=== PATIENT | male | born 1970 | race Caucasian/White ===

== ENCOUNTER 2017-07-30 09:14 | Emergency (ER) | payer MEDICARE ==
[~2017-07-30] VITALS: Ht 160 cm; Wt 55.0 kg
[~2017-07-30 09:14] MED LIST: DIVA250T25 PO; RISP3 PO
[2017-07-30] MEDS ORDERED: SERT100T12 PO (09:43)
[2017-07-30 10:08] VITALS: BP 116/83
[2017-07-30] MEDS ORDERED: IBUPROFEN 800 MG TABLET PO ONE (10:30)
== END 2017-07-30 10:56 | disposition home or self-care (01) ==
LOC: EMS 09:17
DX: H60.93 Unspecified otitis externa, bilateral (principal); F17.210 Nicotine dependence, cigarettes, uncomplicated
CPT/HCPCS: 99283

== ENCOUNTER 2017-08-08 13:42 | Emergency (ER) | payer MEDICARE ==
[~2017-08-08] VITALS: Ht 162.6 cm; Wt 54.5 kg
[~2017-08-08 13:42] MED LIST changes: -DIVA250T25 PO; -RISP3 PO; +SERT100T12 PO
[2017-08-08] MEDS ORDERED: LIDOCAINE HCL 1% 10 ML VIAL INJ ONE (14:15)
[2017-08-08] MEDS ORDERED: CEPHALEXIN MONOHYDRATE 500 MG CAPSULE PO ONE (14:15)
[2017-08-08] MEDS ORDERED: POVIDONE-IODINE 10% 15 ML SOLUTION UD TP ONE (14:15)
[2017-08-08] MEDS ORDERED: IBUPROFEN 800 MG TABLET PO ONE (14:15)
[2017-08-08] MEDS ORDERED: SULFAMETHOX/TRIMETH DS 800-160 MG/TABLET PO ONE (14:15)
[2017-08-08 14:44] VITALS: BP 118/71
== END 2017-08-08 14:50 | disposition home or self-care (01) ==
LOC: EMS 13:44
DX: L02.212 Cutaneous abscess of back [any part, except buttock and flank] (principal); F17.210 Nicotine dependence, cigarettes, uncomplicated
CPT/HCPCS: 10060; 99284; J3490

== ENCOUNTER 2017-10-21 21:28 | Emergency (ER) | payer MEDICARE ==
[~2017-10-21] VITALS: Ht 160 cm; Wt 59.1 kg
[2017-10-21] MEDS ORDERED: TRAM50TA4 PO (21:51)
[2017-10-21 22:15] LABS: BASOPHILS % (AUTO) 0.8 % (0.0-2.0); EOSINOPHILS % (AUTO) 0.9 % (1.0-6.0); HEMATOCRIT 41.2 % (41-53); HEMOGLOBIN 13.9 g/dL (13.5-17.5); LYMPHOCYTES # (AUTO) 1.8 K/uL (1.0-4.8); LYMPHOCYTES % (AUTO) 10.2 % (22.0-44.0); MEAN CORPUSCULAR HGB CONC 33.7 G/dL (31.0-37.0); MEAN CORPUSCULAR VOLUME 83 fL (80-100); MONOCYTES # (AUTO) 1.2 K/uL (0.1-1.0); NEUTROPHILS % (AUTO) 81.1 % (40.0-70.0); PLATELET COUNT (AUTO) 391 K/uL (150-450); RED BLOOD CELL COUNT(AUTO) 4.95 MIL/uL (4.50-5.90); RED CELL DISTRIBUTION WIDTH 14.8 % (11.5-14.5)
[2017-10-21 22:39] LABS: ANION GAP 10 mmol/L (8-16); CALCIUM, TOTAL 9.4 mg/dL (8.8-10.5); CARBON DIOXIDE 27 mmol/L (22-29); CHLORIDE 102 mmol/L (98-107); CREATININE 1.11 mg/dL (0.60-1.30); GLOMERULAR FILTR. RATE CALC > 60 mL/min (>60); GLUCOSE,RANDOM 93 mg/dL (70-110); POTASSIUM 3.7 mmol/L (3.5-5.1); SODIUM SERUM 139 mmol/L (136-145); UREA NITROGEN, BLOOD 17 mg/dL (7-18)
[2017-10-21 22:44] LABS: ALANINE AMINOTRANSFERASE 18 U/L (12-78); ALKALINE PHOSPHATASE 104 U/L (46-116); ASPARTATE AMINOTRANSFERASE 18 U/L (15-37); BILIRUBIN,TOTAL 0.2 mg/dL (0.1-1.0); TOTAL PROTEIN, SERUM 8.2 g/dL (6.4-8.2)
[2017-10-22 00:54] LABS: AMPHET/METH SCREEN,URINE NEGATIVE (NEGATIVE); BARBITURATE SCREEN, URINE NEGATIVE (NEGATIVE); BENZODIAZEPINES SCREEN,URINE NEGATIVE (NEGATIVE); CANNABINOID SCREEN,URINE NEGATIVE (NEGATIVE); COCAINE SCREEN,URINE NEGATIVE (NEGATIVE); METHADONE SCREEN, URINE NEGATIVE (NEGATIVE); OPIATE SCREEN,URINE NEGATIVE (NEGATIVE)
[2017-10-22 00:56] LABS: PHENCYCLIDINE SCREEN,URINE NEGATIVE (NEGATIVE)
[2017-10-22] MEDS ORDERED: LORazepam 2 MG TABLET PO ONE (01:15)
[2017-10-22 01:53] VITALS: BP 137/82
== END 2017-10-22 02:23 | disposition home or self-care (01) ==
LOC: EMS 21:56
DX: R25.1 Tremor, unspecified (principal); F41.9 Anxiety disorder, unspecified; I10 Essential (primary) hypertension; F14.90 Cocaine use, unspecified, uncomplicated; F15.90 Other stimulant use, unspecified, uncomplicated; F11.90 Opioid use, unspecified, uncomplicated; F17.210 Nicotine dependence, cigarettes, uncomplicated
CPT/HCPCS: 36415; 80053; 80307; 85025; 99284; G0480